=== PATIENT | female | born 1995 | race Caucasian/White ===

== ENCOUNTER → 2016-12-17 | Outpatient (CLI) | payer OTHER ==
[2016-12-17 08:56] LABS: ALBUMIN 4.1 GM/DL (3.2-5.2); ALBUMIN/GLOBULIN RATIO 1.32 (1.00-1.93); ALKALINE PHOSPHATASE 67 U/L (45-117); ALT/SGPT 36 U/L (12-78); ANION GAP 9 MEQ/L (8-16); AST/SGOT 8 U/L (15-37); BILIRUBIN,TOTAL 0.3 MG/DL (0.2-1.0); BLOOD UREA NITROGEN 12 MG/DL (7-18); CALCIUM LEVEL 9.2 MG/DL (8.5-10.1); CARBON DIOXIDE LEVEL 30 MEQ/L (21-32); CHLORIDE LEVEL 105 MEQ/L (98-107); CHOLESTEROL LEVEL 167 MG/DL (<200); GLUCOSE, FASTING 130 MG/DL (70-105); POTASSIUM SERUM 4.6 MEQ/L (3.5-5.1); SODIUM LEVEL 144 MEQ/L (136-145); TOTAL PROTEIN 7.2 GM/DL (6.4-8.2); TRIGLYCERIDES LEVEL 74 MG/DL (<150)
== END ==
LOC: M LAB 07:36
PROVIDERS: ATTEND Physician Assistant Medical
DX: E11.9 Type 2 diabetes mellitus without complications (principal)

== ENCOUNTER → 2017-06-29 | Outpatient (CLI) | payer OTHER ==
[2017-06-29 13:11] LABS: ANION GAP 6 MEQ/L (8-16); BLOOD UREA NITROGEN 8 MG/DL (7-18); CALCIUM LEVEL 9.6 MG/DL (8.5-10.1); CARBON DIOXIDE LEVEL 29 MEQ/L (21-32); CHLORIDE LEVEL 105 MEQ/L (98-107); CREATININE FOR GFR 0.81 MG/DL (0.55-1.02); GLOMERULAR FILTRATION RATE > 60.0 (>60); GLUCOSE, FASTING 101 MG/DL (70-105); POTASSIUM SERUM 4.5 MEQ/L (3.5-5.1); SODIUM LEVEL 140 MEQ/L (136-145)
== END ==
LOC: M LAB 11:33
PROVIDERS: ATTEND Physician Assistant Medical
DX: E11.9 Type 2 diabetes mellitus without complications (principal)

== ENCOUNTER → 2018-07-21 | Outpatient (REF) | payer OTHER ==
[2018-07-21 19:22] LABS: HEMATOCRIT 42.8 % (36.0-47.0); HEMOGLOBIN 13.9 g/dl (12.0-15.5); MEAN CORPUSCULAR HEMOGLOBIN 28.8 pg (27.0-33.0); MEAN CORPUSCULAR HGB CONC 32.5 g/dl (32.0-36.5); MEAN CORPUSCULAR VOLUME 88.6 fl (80.0-96.0); PLATELET COUNT, AUTOMATED 293 10^3/uL (150-450); RED BLOOD COUNT 4.83 10^6/uL (4.00-5.40); WHITE BLOOD COUNT 7.4 10^3/uL (4.0-10.0)
[2018-07-21 19:28] LABS: ESTIMATED AVERAGE GLUCOSE 134 MG/DL (60-110); HEMOGLOBIN A1c 6.3 %
[2018-07-21 19:34] LABS: ALBUMIN 4.1 GM/DL (3.2-5.2); ALBUMIN/GLOBULIN RATIO 1.05 (1.00-1.93); ALKALINE PHOSPHATASE 57 U/L (45-117); ALT/SGPT 25 U/L (12-78); ANION GAP 7 MEQ/L (8-16); AST/SGOT 12 U/L (7-37); BILIRUBIN,TOTAL 0.3 MG/DL (0.2-1.0); BLOOD UREA NITROGEN 10 MG/DL (7-18); CALCIUM LEVEL 9.4 MG/DL (8.5-10.1); CARBON DIOXIDE LEVEL 29 MEQ/L (21-32); CHLORIDE LEVEL 105 MEQ/L (98-107); CREATININE FOR GFR 0.78 MG/DL (0.55-1.30); FREE T4 1.15 NG/DL (0.76-1.46); GLOMERULAR FILTRATION RATE > 60.0 (>60); GLUCOSE, FASTING 107 MG/DL (70-100); POTASSIUM SERUM 4.1 MEQ/L (3.5-5.1); SODIUM LEVEL 141 MEQ/L (136-145); THYROID STIMULATING HORMONE 0.875 uIU/ML (0.358-3.740)
== END ==
LOC: M SFHCADAM 16:30
DX: F42.9 Obsessive-compulsive disorder, unspecified (principal); E13.9 Other specified diabetes mellitus without complications

== ENCOUNTER → 2020-07-13 | Outpatient (REF) | payer OTHER ==
[2020-08-30 20:41] LABS: BASO # 0.1 10^3/uL (0.0-0.2); BASO % 0.7 % (0.0-1.0); EOS # 0.1 10^3/uL (0.0-0.5); HEMATOCRIT 39.6 % (36.0-47.0); HEMOGLOBIN 13.1 g/dl (12.0-15.5); LYMPH # 3.3 10^3/uL (1.5-5.0); LYMPH % 45.4 % (24.0-44.0); MEAN CORPUSCULAR HEMOGLOBIN 29.6 pg (27.0-33.0); MEAN CORPUSCULAR HGB CONC 33.1 g/dl (32.0-36.5); MEAN CORPUSCULAR VOLUME 89.4 fl (80.0-96.0); MONO # 0.5 10^3/uL (0.0-0.8); MONO % 7.2 % (0.0-5.0); NEUTROPHILS # 3.3 10^3/uL (1.5-8.5); NEUTROPHILS % 45.4 % (36.0-66.0); PLATELET COUNT, AUTOMATED 240 10^3/uL (150-450); RED BLOOD COUNT 4.43 10^6/uL (4.00-5.40); WHITE BLOOD COUNT 7.3 10^3/uL (4.0-10.0)
[2020-09-09 23:03] LABS: ALBUMIN 4.4 GM/DL (3.2-5.2); ALT/SGPT 20 U/L (12-78); BILIRUBIN,TOTAL 0.5 MG/DL (0.2-1.0); BLOOD UREA NITROGEN 11 MG/DL (7-18); CALCIUM LEVEL 9.5 MG/DL (8.5-10.1); CARBON DIOXIDE LEVEL 30 MEQ/L (21-32); CHLORIDE LEVEL 104 MEQ/L (98-107); CHOLESTEROL LEVEL 177 MG/DL (<200); CHOLESTEROL RISK RATIO 2.901 (<5); GLOMERULAR FILTRATION RATE > 60.0 (>60); GLUCOSE, FASTING 150 MG/DL (70-100); HDL CHOLESTEROL 61 MG/DL (>40); HEMOGLOBIN A1c 6.4 %; LDL CHOLESTEROL 107 MG/DL (<100); NON-HDL-C 116 MG/DL; POTASSIUM SERUM 4.1 MEQ/L (3.5-5.1); SODIUM LEVEL 138 MEQ/L (136-145); TOTAL 25(OH) VITAMIN D 30.1 NG/ML (30.0-100.0); TOTAL PROTEIN 7.6 GM/DL (6.4-8.2); TRIGLYCERIDES LEVEL 47 MG/DL (<150)
== END ==
LOC: M SFHCWAGY 12:32
PROVIDERS: ATTEND Advanced Practice Midwife
DX: Z12.4 Encounter for screening for malignant neoplasm of cervix (principal); Z11.51 Encounter for screening for human papillomavirus (HPV)
CPT/HCPCS: 36415; 80053; 80061; 82306; 83036; 85025; G0123

== ENCOUNTER → 2021-06-19 | Outpatient (CLI) | payer BC, OTHER ==
[2021-06-19 17:21] LABS: HEMOGLOBIN 13.3 g/dl (12.0-15.5); MEAN CORPUSCULAR HEMOGLOBIN 30.1 pg (27.0-33.0); MEAN CORPUSCULAR HGB CONC 33.3 g/dl (32.0-36.5); MEAN CORPUSCULAR VOLUME 90.5 fl (80.0-96.0); PLATELET COUNT, AUTOMATED 268 10^3/uL (150-450); RED BLOOD COUNT 4.42 10^6/uL (4.00-5.40); WHITE BLOOD COUNT 9.3 10^3/uL (4.0-10.0)
[2021-06-19 17:33] LABS: HIV 1&2 SCREEN CENTAUR NEGATIVE (NEGATIVE)
[2021-06-19 18:32] LABS: GC DNA AMPLIFICATION NEGATIVE (NEGATIVE)
== END ==
LOC: M PLALAB 12:20
PROVIDERS: ATTEND Advanced Practice Midwife
DX: O24.311 Unspecified pre-existing diabetes mellitus in pregnancy, first trimester (principal)

== ENCOUNTER → 2021-07-03 | Outpatient (CLI) | payer BC, OTHER ==
[2021-07-03 16:04] LABS: ALBUMIN 3.5 GM/DL (3.2-5.2); ALT/SGPT 16 U/L (12-78); BILIRUBIN,TOTAL 0.3 MG/DL (0.2-1.0); BLOOD UREA NITROGEN 8 MG/DL (7-18); CALCIUM LEVEL 9.5 MG/DL (8.5-10.1); CARBON DIOXIDE LEVEL 26 MEQ/L (21-32); CHLORIDE LEVEL 105 MEQ/L (98-107); CREATININE FOR GFR 0.55 MG/DL (0.55-1.30); GLOMERULAR FILTRATION RATE > 60.0 (>60); GLUCOSE, FASTING 73 MG/DL (70-100); LDH LACTATE DEHYDROGENASE 151 U/L (84-246); SODIUM LEVEL 138 MEQ/L (136-145); TOTAL PROTEIN 7.1 GM/DL (6.4-8.2)
[2021-07-03 16:05] LABS: TOTAL PROTEIN,RANDOM URINE 9.8 MG/DL (0.0-12.0)
== END ==
LOC: M PLALAB 12:48
PROVIDERS: ATTEND Advanced Practice Midwife
DX: O24.311 Unspecified pre-existing diabetes mellitus in pregnancy, first trimester (principal)

== ENCOUNTER → 2021-09-24 | Outpatient (CLI) | payer BC, OTHER ==
[2021-09-24 16:25] LABS: HEMATOCRIT 34.2 % (36.0-47.0); HEMOGLOBIN 11.3 g/dl (12.0-15.5); MEAN CORPUSCULAR HEMOGLOBIN 29.7 pg (27.0-33.0); PLATELET COUNT, AUTOMATED 235 10^3/uL (150-450); WHITE BLOOD COUNT 12.5 10^3/uL (4.0-10.0)
== END ==
LOC: M LAB 15:52
PROVIDERS: ATTEND Advanced Practice Midwife
DX: O24.312 Unspecified pre-existing diabetes mellitus in pregnancy, second trimester (principal)

== ENCOUNTER → 2021-10-25 | Outpatient (CLI) | payer BC, OTHER ==
[2021-10-25 13:41] LABS: HEMATOCRIT 34.1 % (36.0-47.0); HEMOGLOBIN 11.1 g/dl (12.0-15.5); MEAN CORPUSCULAR HEMOGLOBIN 28.9 pg (27.0-33.0); MEAN CORPUSCULAR HGB CONC 32.6 g/dl (32.0-36.5); MEAN CORPUSCULAR VOLUME 88.8 fl (80.0-96.0); PLATELET COUNT, AUTOMATED 220 10^3/uL (150-450); RED BLOOD COUNT 3.84 10^6/uL (4.00-5.40); WHITE BLOOD COUNT 12.4 10^3/uL (4.0-10.0)
[2021-10-25 13:57] LABS: CREATININE,RANDOM URINE 14.2 MG/DL; TOTAL PROTEIN,RANDOM URINE < 5.0 MG/DL (0.0-12.0)
[2021-10-25 14:06] LABS: ALT/SGPT 17 U/L (12-78); BILIRUBIN,TOTAL 0.2 MG/DL (0.2-1.0); CREATININE FOR GFR 0.58 MG/DL (0.55-1.30); GLOMERULAR FILTRATION RATE > 60.0 (>60); LDH LACTATE DEHYDROGENASE 146 U/L (84-246); URIC ACID 2.6 MG/DL (2.6-6.0)
== END ==
LOC: M LAB 13:06
PROVIDERS: ATTEND Advanced Practice Midwife
DX: O16.3 Unspecified maternal hypertension, third trimester (principal)

== ENCOUNTER → 2023-10-02 | Outpatient (CLI) | payer BC, OTHER ==
[2023-10-02 17:27] LABS: HEMATOCRIT 41.5 % (36.0-47.0); HEMOGLOBIN 13.2 g/dl (12.0-15.5); MEAN CORPUSCULAR HEMOGLOBIN 28.1 pg (27.0-33.0); MEAN CORPUSCULAR HGB CONC 31.8 g/dl (32.0-36.5); MEAN CORPUSCULAR VOLUME 88.5 fl (80.0-96.0); PLATELET COUNT, AUTOMATED 269 10^3/uL (150-450); RED BLOOD COUNT 4.69 10^6/uL (4.00-5.40); WHITE BLOOD COUNT 7.1 10^3/uL (4.0-10.0)
[2023-10-02 17:50] LABS: HEMOGLOBIN A1c 6.3 % (4.0-6.0)
[2023-10-02 17:51] LABS: CREATININE, URINE 96.4 MG/DL; MAU/CREAT RATIO 6.2 MCG/MG (0.0-30.0)
[2023-10-02 17:52] LABS: ALBUMIN 4.1 G/DL (3.2-5.2); ALKALINE PHOSPHATASE 57 U/L (46-116); ALT/SGPT 11 U/L (7.0-40); AST/SGOT 9 U/L (<34); BILIRUBIN,TOTAL 0.3 MG/DL (0.3-1.2); BLOOD UREA NITROGEN 14 MG/DL (9-23); CALCIUM LEVEL 9.6 MG/DL (8.5-10.1); CARBON DIOXIDE LEVEL 27 MMOL/L (20-31); CHLORIDE LEVEL 107 MMOL/L (98-107); CHOLESTEROL LEVEL 182 MG/DL (<200); CHOLESTEROL RISK RATIO 4.09 (<5); CREATININE FOR GFR 0.77 MG/DL (0.55-1.30); GLOMERULAR FILTRATION RATE > 60.0 (>60); GLUCOSE, FASTING 123 MG/DL (60-100); HDL CHOLESTEROL 44.4 MG/DL (>40); LDL CHOLESTEROL 121.8 MG/DL (<100); NON-HDL-C 137.6 MG/DL; POTASSIUM SERUM 4.2 MMOL/L (3.5-5.1); SODIUM LEVEL 142 MMOL/L (136-145); TOTAL PROTEIN 7.3 G/DL (5.7-8.2); TRIGLYCERIDES LEVEL 79 MG/DL (<150)
[2023-10-02 17:54] LABS: FREE T4 1.05 NG/DL (0.89-1.76)
[2023-10-02 17:55] LABS: THYROID STIMULATING HORMONE 1.129 uIU/ML (0.55-4.78)
== END ==
LOC: M LAB 16:50
PROVIDERS: ATTEND Family Medicine
DX: F42.9 Obsessive-compulsive disorder, unspecified (principal); I10 Essential (primary) hypertension; E13.9 Other specified diabetes mellitus without complications

== ENCOUNTER → 2023-10-14 | Outpatient (CLI) | payer BC, OTHER | LOC: M RAD 06:32 | PROVIDERS: ATTEND Family Medicine | DX: I10 Essential (primary) hypertension (principal); I70.1 Atherosclerosis of renal artery ==

== ENCOUNTER → 2024-06-17 | Outpatient (CLI) | payer BC ==
[2024-06-17 15:27] LABS: HEMOGLOBIN A1c 6.4 % (4.0-6.0)
[2024-06-17 15:30] LABS: CREATININE, URINE 145.2 MG/DL; MAU/CREAT RATIO 6.8 MCG/MG (0.0-30.0)
[2024-06-17 15:32] LABS: ALBUMIN 4.5 G/DL (3.2-5.2); ALKALINE PHOSPHATASE 83 U/L (46-116); ALT/SGPT 21 U/L (7.0-40); AST/SGOT 9 U/L (<34); BILIRUBIN,TOTAL 0.5 MG/DL (0.3-1.2); BLOOD UREA NITROGEN 16 MG/DL (9-23); CALCIUM LEVEL 9.9 MG/DL (8.5-10.1); CARBON DIOXIDE LEVEL 26 MMOL/L (20-31); CHLORIDE LEVEL 106 MMOL/L (98-107); CHOLESTEROL LEVEL 175 MG/DL (<200); CHOLESTEROL RISK RATIO 4.44 (<5); CREATININE FOR GFR 0.73 MG/DL (0.55-1.30); GLOMERULAR FILTRATION RATE > 60.0 (>60); GLUCOSE, FASTING 117 MG/DL (60-100); HDL CHOLESTEROL 39.4 MG/DL (>40); LDL CHOLESTEROL 114.8 MG/DL (<100); NON-HDL-C 135.6 MG/DL; POTASSIUM SERUM 4.3 MMOL/L (3.5-5.1); SODIUM LEVEL 138 MMOL/L (136-145); TOTAL PROTEIN 7.9 G/DL (5.7-8.2); TRIGLYCERIDES LEVEL 104 MG/DL (<150)
[2024-06-17 15:33] LABS: FREE T4 1.07 NG/DL (0.89-1.76); THYROID STIMULATING HORMONE 1.287 uIU/ML (0.55-4.78)
== END ==
LOC: M LAB 13:40
PROVIDERS: ATTEND Family Medicine
DX: E13.9 Other specified diabetes mellitus without complications (principal); R94.6 Abnormal results of thyroid function studies

== ENCOUNTER → 2024-06-21 | Outpatient (REF) | payer BC | LOC: M SFHCADAM 08:37 | PROVIDERS: ATTEND Family Medicine | DX: E13.9 Other specified diabetes mellitus without complications (principal); R94.6 Abnormal results of thyroid function studies; Z53.9 Procedure and treatment not carried out, unspecified reason ==

== ENCOUNTER → 2025-01-13 | Outpatient (CLI) | payer BC | LOC: M RAD 10:11 | PROVIDERS: ATTEND Physician Assistant | DX: R10.11 Right upper quadrant pain (principal); K80.20 Calculus of gallbladder without cholecystitis without obstruction ==

== ENCOUNTER → 2025-01-13 | Outpatient (REF) | payer BC ==
[2025-01-13 14:32] LABS: BASO % 0.6 % (0.0-1.0); EOS # 0.2 10^3/uL (0.0-0.5); EOS % 2.2 % (0.0-3.0); HEMATOCRIT 43.5 % (36.0-47.0); HEMOGLOBIN 13.7 g/dl (12.0-15.5); LYMPH # 2.9 10^3/uL (1.5-5.0); LYMPH % 42.1 % (24.0-44.0); MEAN CORPUSCULAR HEMOGLOBIN 27.6 pg (27.0-33.0); MEAN CORPUSCULAR HGB CONC 31.5 g/dl (32.0-36.5); MEAN CORPUSCULAR VOLUME 87.5 fl (80.0-96.0); MONO # 0.5 10^3/uL (0.0-0.8); MONO % 7.5 % (2.0-8.0); NEUTROPHILS # 3.3 10^3/uL (1.5-8.5); NEUTROPHILS % 47.5 % (36.0-66.0); PLATELET COUNT, AUTOMATED 284 10^3/uL (150-450); RED BLOOD COUNT 4.97 10^6/uL (4.00-5.40); WHITE BLOOD COUNT 6.8 10^3/uL (4.0-10.0)
[2025-01-13 14:59] LABS: LIPASE 32 U/L (12-53)
[2025-01-13 15:00] LABS: AMYLASE 99 U/L (30-118)
[2025-01-13 15:01] LABS: ALBUMIN 4.2 G/DL (3.2-5.2); ALKALINE PHOSPHATASE 72 U/L (35-104); ALT/SGPT 24 U/L (7.0-40); AST/SGOT < 8 U/L (<34); BILIRUBIN,TOTAL 0.4 MG/DL (0.3-1.2); BLOOD UREA NITROGEN 10 MG/DL (9-23); CALCIUM LEVEL 9.5 MG/DL (8.5-10.1); CARBON DIOXIDE LEVEL 26 MMOL/L (20-31); CHLORIDE LEVEL 108 MMOL/L (98-107); CREATININE FOR GFR 0.78 MG/DL (0.55-1.30); GLOMERULAR FILTRATION RATE > 60.0 (>60); GLUCOSE, FASTING 125 MG/DL (60-100); POTASSIUM SERUM 4.7 MMOL/L (3.5-5.1); SODIUM LEVEL 142 MMOL/L (136-145); TOTAL PROTEIN 7.4 G/DL (5.7-8.2)
== END ==
LOC: M SFHCADAM 09:23
PROVIDERS: ATTEND Physician Assistant
DX: R10.11 Right upper quadrant pain (principal)

== ENCOUNTER 2025-03-15 14:37 | Emergency (ER) | payer BC ==
[~2025-03-15] VITALS: Ht 154.9 cm; Wt 68.9 kg
[~2025-03-15 14:37] MED LIST: AMLO1TAB24 PO; ERGO500029 PO; FLUV25TA11 PO
[2025-03-15 14:51] VITALS: TEMP 98.9
[2025-03-15 15:42] LABS: BASO % 0.5 % (0.0-1.0); EOS # 0.2 10^3/uL (0.0-0.5); EOS % 2.3 % (0.0-3.0); HEMATOCRIT 47.3 % (36.0-47.0); HEMOGLOBIN 15.3 g/dl (12.0-15.5); MEAN CORPUSCULAR HEMOGLOBIN 28.1 pg (27.0-33.0); MEAN CORPUSCULAR HGB CONC 32.3 g/dl (32.0-36.5); MEAN CORPUSCULAR VOLUME 86.9 fl (80.0-96.0); MONO # 0.4 10^3/uL (0.0-0.8); MONO % 5.7 % (2.0-8.0); NEUTROPHILS # 4.8 10^3/uL (1.5-8.5); NEUTROPHILS % 64.4 % (36.0-66.0); PLATELET COUNT, AUTOMATED 328 10^3/uL (150-450); RED BLOOD COUNT 5.44 10^6/uL (4.00-5.40); WHITE BLOOD COUNT 7.4 10^3/uL (4.0-10.0)
[2025-03-15 15:44] LABS: KETONE, URINE MANUAL REFLEX 3+ mg/dL (NEGATIVE); PROTEIN, URINE MANUAL REFLEX 1+ mg/dL (NEGATIVE); SP GRAVITY,URINE MANUAL REFLEX 1.025 (1.002-1.035)
[2025-03-15 15:45] LABS: NITRITE, URINE MANUAL RFX NEGATIVE (NEGATIVE); UROBILINOGEN, UA MANUAL REFLEX NORMAL (NORMAL)
[2025-03-15 15:55] LABS: HYALINE CAST, URINE RFX NONE SEEN /lpf (0-1); RBC, URINE MAN REFLEX 15-20 /hpf (0-3); SQUAMOUS EPITHELIAL URINE RFX LARGE AMOUNT /hpf (SMALL AMT)
[2025-03-15 15:56] LABS: MICROSCOPIC EXAM RFX PERFORMED
[2025-03-15 16:10] LABS: LIPASE 30 U/L (12-53)
[2025-03-15 16:27] LABS: ALBUMIN 4.6 G/DL (3.2-5.2); ALKALINE PHOSPHATASE 190 U/L (35-104); ALT/SGPT 1571 U/L (7.0-40); AST/SGOT 877 U/L (<34); BILIRUBIN,TOTAL 6.2 MG/DL (0.3-1.2); BLOOD UREA NITROGEN 13 MG/DL (9-23); CALCIUM LEVEL 10.1 MG/DL (8.5-10.1); CARBON DIOXIDE LEVEL 27 MMOL/L (20-31); CHLORIDE LEVEL 103 MMOL/L (98-107); CREATININE FOR GFR 0.79 MG/DL (0.55-1.30); GLOMERULAR FILTRATION RATE > 90.0 (>60); GLUCOSE, FASTING 110 MG/DL (60-100); POTASSIUM SERUM 4.1 MMOL/L (3.5-5.1); SODIUM LEVEL 142 MMOL/L (136-145); TOTAL PROTEIN 8.2 G/DL (5.7-8.2)
[2025-03-15] MEDS: ONDANSETRON 4MG 2ML VIAL IV ONE (16:56)
[2025-03-15] MEDS: NS (Normal Saline) 0.9% 1,000 ML IV ONE (17:35)
[2025-03-15 18:01] LABS: HEPATITIS B SURFACE ANTIGEN NEGATIVE (NEGATIVE)
[2025-03-15 18:22] LABS: HEPATITIS B CORE ANTIBODY IGM NEGATIVE (NEGATIVE); HEPATITIS C VIRUS ABY INDEX 0.02 INDEX (<0.8)
[2025-03-15 18:48] LABS: AMYLASE 89 U/L (30-118)
[2025-03-15 18:53] LABS: HCG, SERUM QUALITATIVE NEGATIVE (NEGATIVE)
[2025-03-15 22:09] LABS: ALBUMIN 3.9 G/DL (3.2-5.2); BILIRUBIN,DIRECT 1.9 MG/DL (<0.4); BILIRUBIN,TOTAL 3.1 MG/DL (0.3-1.2); TOTAL PROTEIN 7.1 G/DL (5.7-8.2)
[2025-03-15 22:39] VITALS: BP 146/69; O2SAT 98
== END 2025-03-15 22:41 | disposition home or self-care (01) ==
LOC: M ED 14:37
DX: K80.70 Calculus of gallbladder and bile duct without cholecystitis without obstruction (principal); R74.01 Elevation of levels of liver transaminase levels; E11.9 Type 2 diabetes mellitus without complications; I10 Essential (primary) hypertension; F41.9 Anxiety disorder, unspecified; Z79.899 Other long term (current) drug therapy; Z88.0 Allergy status to penicillin
CPT/HCPCS: 74181; 76705; 80048; 80074; 80076; 81000; 81015; 82150; 83690; 84703; 85025; 87086; 96361; 96365; 96374; 99284; J2405

== ENCOUNTER 2025-03-23 10:19 | Day surgery (SDC) | payer BC ==
[~2025-03-23] VITALS: Ht 154.9 cm; Wt 67.4 kg
[2025-03-23] MEDS ORDERED: LIDOCAINE 2% 100MG/5ML SDV (FOR ANES.) As Ordered ONE (10:54)
[2025-03-23] MEDS ORDERED: MIDAZOLAM INJ 2MG/2ML VIAL As Ordered ONE (10:54)
[2025-03-23] MEDS ORDERED: ONDANSETRON 4MG 2ML VIAL As Ordered ONE (10:54)
[2025-03-23] MEDS ORDERED: ROCURONIUM BROMIDE 50MG/5ML VIAL As Ordered ONE (10:54)
[2025-03-23] MEDS ORDERED: propofoL 200 MG/20 ML VIAL As Ordered ONE (10:54)
[2025-03-23] MEDS ORDERED: ACETAMINOPHEN 1000MG/100ML IV BAG As Ordered ONE (10:55)
[2025-03-23] MEDS ORDERED: fentaNYL 100 MCG/2 ML INJECTION As Ordered ONE (10:55)
[2025-03-23] MEDS ORDERED: KETOROLAC 30 MG/ML 1ML VIAL As Ordered ONE (10:55)
[2025-03-23] MEDS ORDERED: SUGAMMADEX SODIUM 500 MG/5 ML VIAL (BRIDION) As Ordered ONE (10:55)
[2025-03-23] MEDS: INDOCYANINE GREEN 25MG VIAL (IC-GREEN) IV ONE (12:37)
[2025-03-23] MEDS: ceFAZolin SOD 2 GM IV ONCE IV ONE (12:40)
[2025-03-23] MEDS: HEPARIN SOD (PORCINE) 5000UNITS/ML 1ML VIAL/SYRINGE SQ ONE (12:53)
[2025-03-23] MEDS ORDERED: dexmedeTOMIDine (4MCG/ML)200MCG/50ML BTL (PRECEDEX) As Ordered ONE (13:51)
[2025-03-23] MEDS ORDERED: ONDANSETRON 4MG 2ML VIAL IV PRN (14:05)
[2025-03-23] MEDS ORDERED: fentaNYL 100 MCG/2 ML INJECTION IV PRN (14:05)
[2025-03-23] MEDS ORDERED: HYDROMORPHONE HCL 0.5 MG/ 0.5 ML SYRINGE IV PRN (14:05)
[2025-03-23] MEDS ORDERED: METOCLOPRAMIDE INJ 10MG/2ML VIAL IV PRN (14:05)
[2025-03-23] MEDS ORDERED: LR 1,000 ML IV SCH (14:05)
[2025-03-23] MEDS ORDERED: MEPERIDINE 25 MG/ML 1ML VIAL IV PRN (14:05)
[2025-03-23] MEDS ORDERED: diphenhydrAMINE 50MG/ML VIAL IV PRN (14:05)
[2025-03-23] MEDS: oxyCODONE 5MG TAB PO PRN (14:29)
[2025-03-23 15:27] VITALS: BP 118/87; TEMP 96.8; O2SAT 100
== END 2025-03-23 15:33 | disposition home or self-care (01) ==
LOC: M SDC 10:19
PROVIDERS: ATTEND Surgery
DX: K80.20 Calculus of gallbladder without cholecystitis without obstruction (principal)
CPT/HCPCS: 47562; 81025; 88304; J0131; J0665; J0690; J1100; J1885; J2250; J2405; J3010; Q9968; S2900